=== PATIENT | female | born 1990 | race Caucasian/White ===

== ENCOUNTER 2017-01-28 19:20 | Emergency (ER) | payer BC | END 2017-01-28 21:50 | disposition home or self-care (01) | LOC: ER 19:20 | DX: R00.2 Palpitations (principal); R11.0 Nausea; T50.2X5A Adverse effect of carbonic-anhydrase inhibitors, benzothiadiazides and other diuretics, initial encounter; F17.200 Nicotine dependence, unspecified, uncomplicated | CPT/HCPCS: 36415; 80307; 96374; J0153 ==